=== PATIENT | female | born 1975 | race Caucasian/White ===

== ENCOUNTER 2017-01-28 19:02 | Emergency (ER) | payer MEDICARE, OTHER ==
[~2017-01-28] VITALS: Ht 157.5 cm; Wt 132.0 kg
[~2017-01-28 19:02] MED LIST: HYDR-3735 GT; OXCA600T5 PO; SEE MED SHEET; SERT50TA PO
[2017-01-28 19:03] VITALS: BP 134/85
== END 2017-01-28 20:28 | disposition left against medical advice (07) ==
LOC: ER 19:02
DX: R07.2 Precordial pain (principal); Z53.21 Procedure and treatment not carried out due to patient leaving prior to being seen by health care provider

== ENCOUNTER 2018-01-17 23:04 | Emergency (ER) | payer MEDICARE ==
[~2018-01-17] VITALS: Ht 157.5 cm; Wt 87.0 kg
[2018-01-18] MEDS ORDERED: IBUPROFEN 400MG TABLET PO ONE
[2018-01-18 00:40] VITALS: BP 129/88
== END 2018-01-18 01:24 | disposition home or self-care (01) ==
LOC: ER 23:04
DX: S42.402A Unspecified fracture of lower end of left humerus, initial encounter for closed fracture (principal); W01.0XXA Fall on same level from slipping, tripping and stumbling without subsequent striking against object, initial encounter; Y93.89 Activity, other specified; Y92.89 Other specified places as the place of occurrence of the external cause; F17.210 Nicotine dependence, cigarettes, uncomplicated; F12.90 Cannabis use, unspecified, uncomplicated
CPT/HCPCS: 29105; 73030; 73070; 81025; 99283

== ENCOUNTER 2021-02-25 16:21 | Emergency (ER) | payer MEDICARE ==
[~2021-02-25] VITALS: Ht 160 cm; Wt 128.0 kg
[2021-02-25 17:24] VITALS: BP 121/83
[2021-02-25 18:44] LABS: BASOPHILS % 0.4 % (0.0-2.0); EOSINOPHILS % 3.9 % (0.0-5.0); HEMATOCRIT. 44.8 % (36.0-48.0); HEMOGLOBIN. 15.1 g/dL (12.0-16.0); MEAN CORPUSCULAR HEMOGLOBIN 28.6 pg (28.0-32.0); MEAN CORPUSCULAR VOLUME 84.9 fL (81.0-99.0); MEAN PLATELET VOLUME 8.5 fl (7.4-10.4); MONOCYTES % 6.5 % (2.0-8.0); NEUTROPHILS % 62.2 % (40.0-76.0); PLATELET 362 x1000/uL (130-400); RED BLOOD CELL COUNT 5.27 mill/uL (4.2-5.4)
[2021-02-25 18:55] LABS: CHLORIDE 104 mEq/L (98-107)
[2021-02-25 19:05] LABS: BETA HYDROXYBUTYRATE 0.1 mMol/L (0.0-0.3)
[2021-02-25 19:07] LABS: HCG SCREEN NEGATIVE
== END 2021-02-25 19:24 | disposition home or self-care (01) ==
LOC: ER 16:21
DX: T78.49XA Other allergy, initial encounter (principal); M62.81 Muscle weakness (generalized); E11.9 Type 2 diabetes mellitus without complications; F12.10 Cannabis abuse, uncomplicated; Z98.890 Other specified postprocedural states; Z20.822 Contact with and (suspected) exposure to COVID-19; Z79.84 Long term (current) use of oral hypoglycemic drugs; Z88.8 Allergy status to other drugs, medicaments and biological substances; Y84.8 Other medical procedures as the cause of abnormal reaction of the patient, or of later complication, without mention of misadventure at the time of the procedure; Y92.018 Other place in single-family (private) house as the place of occurrence of the external cause
CPT/HCPCS: 36415; 80053; 82010; 84703; 85025; 87426; 99283

== ENCOUNTER 2021-02-26 02:58 | Emergency (ER) | payer MEDICARE ==
[~2021-02-26] VITALS: Ht 157.5 cm; Wt 130.0 kg
[2021-02-26 05:30] VITALS: BP 144/84
== END 2021-02-26 07:23 | disposition left against medical advice (07) ==
LOC: ER 02:58
DX: Z53.21 Procedure and treatment not carried out due to patient leaving prior to being seen by health care provider (principal)

== ENCOUNTER 2021-04-17 19:48 | Emergency (ER) | payer MEDICARE, OTHER | END 2021-04-17 21:31 | disposition left against medical advice (07) | LOC: ER 19:48 | DX: Z53.21 Procedure and treatment not carried out due to patient leaving prior to being seen by health care provider (principal) ==

== ENCOUNTER 2021-12-24 06:16 | Emergency (ER) | payer OTHER ==
[~2021-12-24] VITALS: Ht 157.5 cm; Wt 110.9 kg
[2021-12-24 06:21] VITALS: BP 133/89
[2021-12-24 08:16] LABS: CLARITY URINE CLEAR (CLEAR); COLOR URINE YELLOW (YELLOW); KETONES URINE TRACE (NEGATIVE); LEUKOCYTE ESTERASE URINE NEGATIVE (NEGATIVE); NITRITE URINE NEGATIVE (NEGATIVE); OCCULT BLOOD URINE NEGATIVE (NEGATIVE); PROTEIN URINE NEGATIVE (NEGATIVE); SPECIFIC GRAVITY URINE 1.025 (1.005-1.030)
[2021-12-24 08:46] LABS: BASOPHILS % 0.5 % (0.0-2.0); EOSINOPHILS % 0.9 % (0.0-5.0); HEMOGLOBIN. 14.6 g/dL (12.0-16.0); LYMPHOCYTES % 22.3 % (20.0-50.0); MEAN CORPUSCULAR HEMOGLOBIN 29.5 pg (28.0-32.0); MEAN CORPUSCULAR VOLUME 87.2 fL (81.0-99.0); MEAN PLATELET VOLUME 8.6 fl (7.4-10.4); MONOCYTES % 7.5 % (2.0-8.0); NEUTROPHILS % 68.8 % (40.0-76.0); PLATELET 268 x1000/uL (130-400); RED BLOOD CELL COUNT 4.93 mill/uL (4.2-5.4)
[2021-12-24 09:05] LABS: CHLORIDE 103 mEq/L (98-107)
[2021-12-24 09:14] LABS: *BARBITURATES SCREEN URINE NEGATIVE (NEGATIVE); *BENZODIAZEPINES SCREEN URINE NEGATIVE (NEGATIVE); *COCAINE SCREEN URINE NEGATIVE (NEGATIVE); CANNABINOID URINE SCREEN NEGATIVE (NEGATIVE); METHADONE URINE SCREEN NEGATIVE (NEGATIVE); OPIATES URINE SCREEN NEGATIVE (NEGATIVE)
[2021-12-24 09:16] LABS: CREATINE KINASE 759 IU/L (26-192); ETHANOL BLOOD < 10 mg/dL
[2021-12-24 09:18] LABS: *AMPHETAMINES SCREEN URINE PRESUMTIVE POSITIVE (NEGATIVE); PHENCYCLIDINE URINE SCREEN PRESUMTIVE POSITIVE (NEGATIVE)
== END 2021-12-24 11:18 | disposition home or self-care (01) ==
LOC: ER 06:16
DX: F16.10 Hallucinogen abuse, uncomplicated (principal); F15.10 Other stimulant abuse, uncomplicated; J44.9 Chronic obstructive pulmonary disease, unspecified; E11.9 Type 2 diabetes mellitus without complications; I10 Essential (primary) hypertension; Z98.890 Other specified postprocedural states; F12.10 Cannabis abuse, uncomplicated
CPT/HCPCS: 36415; 80053; 80305; 80320; 81003; 81025; 82550; 85025; 99283; G0480

== ENCOUNTER 2022-05-01 18:25 | Emergency (ER) | payer OTHER ==
[~2022-05-01] VITALS: Ht 160 cm; Wt 113.0 kg
[2022-05-01 18:35] VITALS: BP 156/86
[2022-05-01] MEDS ORDERED: KETOROLAC 30MG/ML VIAL IV STA (18:42)
[2022-05-01] MEDS ORDERED: ONDANSETRON HCL 4MG/2ML INJ IV STA (18:42)
[2022-05-01] MEDS ORDERED: SODIUM CHLORIDE 0.9% 1,000 ML IV ONE (18:45)
[2022-05-01 19:11] LABS: BASOPHILS % 0.3 % (0.0-2.0); CHLORIDE 104 mEq/L (98-107); EOSINOPHILS % 0.2 % (0.0-5.0); HEMATOCRIT. 39.9 % (36.0-48.0); HEMOGLOBIN. 13.6 g/dL (12.0-16.0); LYMPHOCYTES % 16.4 % (20.0-50.0); MEAN CORPUSCULAR HEMOGLOBIN 29.5 pg (28.0-32.0); MEAN CORPUSCULAR VOLUME 86.8 fL (81.0-99.0); MEAN PLATELET VOLUME 8.5 fl (7.4-10.4); MONOCYTES % 5.9 % (2.0-8.0); NEUTROPHILS % 77.2 % (40.0-76.0); PLATELET 288 x1000/uL (130-400); RED BLOOD CELL COUNT 4.59 mill/uL (4.2-5.4); RED CELL DISTRIBUTION WIDTH 14.9 % (11.6-14.6)
[2022-05-01 19:19] LABS: ETHANOL BLOOD < 10 mg/dL
[2022-05-01 19:21] LABS: HCG SCREEN NEGATIVE
== END 2022-05-01 19:26 | disposition left against medical advice (07) ==
LOC: ER 18:25
DX: R10.9 Unspecified abdominal pain (principal); F12.10 Cannabis abuse, uncomplicated; I10 Essential (primary) hypertension; E11.9 Type 2 diabetes mellitus without complications; Z98.890 Other specified postprocedural states
CPT/HCPCS: 36415; 80053; 80320; 83690; 84703; 85025; 99283; J7030; G0480

== ENCOUNTER 2023-03-11 09:42 | Emergency (ER) | payer OTHER ==
[~2023-03-11] VITALS: Ht 157.5 cm; Wt 86.0 kg
[2023-03-11 09:43] VITALS: O2SAT 99
[2023-03-11] MEDS ORDERED: NALO4SPR BOTHNSTRLS (10:08)
[2023-03-11 10:16] VITALS: BP 128/74; PULSE 90; RESP 18; TEMP 99
== END 2023-03-11 10:17 | disposition home or self-care (01) ==
LOC: ER 09:42
DX: T40.2X1A Poisoning by other opioids, accidental (unintentional), initial encounter (principal); J44.9 Chronic obstructive pulmonary disease, unspecified; E11.9 Type 2 diabetes mellitus without complications; I10 Essential (primary) hypertension; F12.10 Cannabis abuse, uncomplicated; Z98.890 Other specified postprocedural states; Z79.899 Other long term (current) drug therapy; Y92.89 Other specified places as the place of occurrence of the external cause
CPT/HCPCS: 93005; 99283

== ENCOUNTER 2023-08-20 10:19 | Emergency (ER) | payer BC ==
[~2023-08-20] VITALS: Ht 154.9 cm; Wt 6.0 kg
[~2023-08-20 10:19] MED LIST changes: +IBUP-2028 PO; +NALO4SPR BOTHNSTRLS; +T3 PO
[2023-08-20 10:28] VITALS: O2SAT 98
[2023-08-20 10:59] LABS: BASOPHILS % 0.6 % (0.0-2.0); HEMATOCRIT. 42.3 % (36.0-48.0); HEMOGLOBIN. 14.3 g/dL (12.0-16.0); LYMPHOCYTES % 37.3 % (20.0-50.0); MEAN CORPUSCULAR HEMOGLOBIN 32.8 pg (28.0-32.0); MEAN CORPUSCULAR HGB CONC 33.9 g/dL (31.0-37.0); MEAN CORPUSCULAR VOLUME 96.6 fL (81.0-99.0); MEAN PLATELET VOLUME 8.5 fl (7.4-10.4); MONOCYTES % 7.7 % (2.0-8.0); NEUTROPHILS % 52.4 % (40.0-76.0); PLATELET 246 x1000/uL (130-400); RED BLOOD CELL COUNT 4.37 mill/uL (4.2-5.4); RED CELL DISTRIBUTION WIDTH 13.4 % (11.6-14.6); WHITE BLOOD COUNT 6.2 x1000/uL (4.5-11.0)
[2023-08-20 11:07] LABS: CARBON DIOXIDE 31 mEq/L (21-32); CHLORIDE 109 mEq/L (98-107); POTASSIUM 3.7 mEq/L (3.5-5.1); SODIUM 143 mEq/L (136-145)
[2023-08-20 11:08] LABS: CALCIUM 8.6 mg/dL (8.7-10.4)
[2023-08-20 11:12] LABS: CREATININE 0.7 mg/dL (0.6-1.0)
[2023-08-20 11:13] LABS: GLUCOSE 107 mg/dL (70-105); UREA NITROGEN BLOOD 15 mg/dL (9-23)
[2023-08-20 11:14] LABS: ACETAMINOPHEN < 2 ug/mL (10-30)
[2023-08-20 11:23] LABS: HCG SCREEN NEGATIVE
[2023-08-20] MEDS: OLANZAPINE 5MG TABLET ODT PO ONE (12:12)
[2023-08-20] MEDS ORDERED: HYDR-3735 GT (12:28)
[2023-08-20 12:50] VITALS: BP 118/82; PULSE 96; RESP 18; TEMP 98.9
[2023-08-20 14:40] LABS: ETHANOL BLOOD < 10 mg/dL (<10)
== END 2023-08-20 12:50 | disposition home or self-care (01) ==
LOC: ER 10:19
DX: F43.0 Acute stress reaction (principal); F22 Delusional disorders; J44.9 Chronic obstructive pulmonary disease, unspecified; E11.9 Type 2 diabetes mellitus without complications; I10 Essential (primary) hypertension; F12.90 Cannabis use, unspecified, uncomplicated; Z98.890 Other specified postprocedural states; Z88.8 Allergy status to other drugs, medicaments and biological substances
CPT/HCPCS: 36415; 80048; 80307; 80320; 80329; 84703; 85025; 99283; G0480

== ENCOUNTER 2024-10-03 14:16 | Emergency (ER) | payer MEDICAID ==
[~2024-10-03] VITALS: Ht 157.5 cm; Wt 65.0 kg
[2024-10-03] MEDS: HALOPERIDOL LACTATE 5MG/ML VIAL IM ONE ×2 (14:36→21:41)
[2024-10-03] MEDS: MIDAZOLAM HCL 2 MG/2 ML VIAL IM ONE (14:36)
[2024-10-03] MEDS: DIPHENHYDRAMINE 50MG/ML VIAL IM ONE ×2 (14:36→21:41)
[2024-10-03 15:34] LABS: *AMPHETAMINES SCREEN URINE PRESUMPTIVE POSITIVE (NEGATIVE); *BARBITURATES SCREEN URINE NEGATIVE (NEGATIVE); *BENZODIAZEPINES SCREEN URINE NEGATIVE (NEGATIVE); *COCAINE SCREEN URINE NEGATIVE (NEGATIVE); CANNABINOID URINE SCREEN NEGATIVE (NEGATIVE); METHADONE URINE SCREEN NEGATIVE (NEGATIVE); OPIATES URINE SCREEN NEGATIVE (NEGATIVE); PHENCYCLIDINE URINE SCREEN PRESUMTIVE POSITIVE (NEGATIVE)
[2024-10-03 15:35] LABS: ECSTASY MDMA SCREEN URINE NEGATIVE (NEGATIVE)
[2024-10-03 16:21] LABS: CLARITY URINE CLEAR (CLEAR); COLOR URINE YELLOW (YELLOW); GLUCOSE URINE NEGATIVE (NEGATIVE); KETONES URINE NEGATIVE (NEGATIVE); LEUKOCYTE ESTERASE URINE NEGATIVE (NEGATIVE); NITRITE URINE NEGATIVE (NEGATIVE); OCCULT BLOOD URINE NEGATIVE (NEGATIVE); PH URINE 7.5 (4.5-8.0); PROTEIN URINE NEGATIVE (NEGATIVE); SPECIFIC GRAVITY URINE 1.007 (1.005-1.030); UROBILINOGEN URINE 0.2 E.U./dL (0.2-1.0)
[2024-10-03 16:25] LABS: BASOPHILS % 0.3 % (0.0-2.0); EOSINOPHILS % 0.1 % (0.0-5.0); HEMATOCRIT. 37.6 % (36.0-48.0); HEMOGLOBIN. 13.0 g/dL (12.0-16.0); LYMPHOCYTES % 21.2 % (20.0-50.0); MEAN PLATELET VOLUME 9.0 fl (7.4-10.4); MONOCYTES % 6.9 % (2.0-8.0); NEUTROPHILS % 71.5 % (40.0-76.0); PLATELET 177 x1000/uL (130-400); RED BLOOD CELL COUNT 4.06 mill/uL (4.2-5.4); RED CELL DISTRIBUTION WIDTH 13.1 % (11.6-14.6)
[2024-10-03 16:42] LABS: HCG SCREEN NEGATIVE
[2024-10-03 16:43] LABS: CREATININE 0.8 mg/dL (0.6-1.0); UREA NITROGEN BLOOD 14 mg/dL (9-23)
[2024-10-03 16:44] LABS: ETHANOL BLOOD < 10 mg/dL (<10)
[2024-10-03 16:45] LABS: ASPARTATE AMINOTRANSFERASE 121 IU/L (<34); BILIRUBIN DIRECT 0.2 mg/dL (<=3.0)
[2024-10-03 16:46] LABS: BILIRUBIN TOTAL 0.5 mg/dL (0.1-1.0); PROTEIN TOTAL 5.9 g/dL (6.0-8.3)
[2024-10-03 21:45] VITALS: O2SAT 98
[2024-10-03] MEDS: LORAZEPAM 2MG/ML UD SYRINGE IM SCH (21:58)
[2024-10-04 11:40] VITALS: BP 116/85; PULSE 85; RESP 18; TEMP 36.8; O2SAT 98
== END 2024-10-04 11:56 | disposition home or self-care (01) ==
LOC: ER 14:16
DX: F16.129 Hallucinogen abuse with intoxication, unspecified (principal); E11.9 Type 2 diabetes mellitus without complications; I10 Essential (primary) hypertension; J44.9 Chronic obstructive pulmonary disease, unspecified; Z59.01 Sheltered homelessness; Z79.1 Long term (current) use of non-steroidal anti-inflammatories (NSAID); Z79.899 Other long term (current) drug therapy; Z98.890 Other specified postprocedural states; Z20.822 Contact with and (suspected) exposure to COVID-19
CPT/HCPCS: 80076; 80305; 80048; 81003; 80307; 80329; 80320; 84703; 85025; 36415; 96372; 99291; 87426; J1200; J1630; J2060; J2250; Z7610; G0480